=== PATIENT | male | born 1975 | race Caucasian/White ===

== ENCOUNTER 2020-07-03 06:41 | Day surgery (SDC) | payer BC ==
[~2020-07-03 06:41] MED LIST: LACTATED RINGERS 1,000 ML ONE
[2020-07-03] MEDS ORDERED: PROPOFOL 200 MG/20 ML VIAL IV ONE (07:00)
[2020-07-03] MEDS ORDERED: ceFAZolin SODIUM 1 GM VIAL ONE (07:00)
[2020-07-03] MEDS ORDERED: SODIUM CHLORIDE 0.9% 50 ML VIAL ONE (07:00)
[2020-07-03] MEDS ORDERED: MAGNESIUM SULFATE INJ 1 GM/2 ML VIAL ONE (07:00)
[2020-07-03] MEDS ORDERED: KETOROLAC TROMETHAMINE INJ 30 MG/ML VIAL ONE (07:00)
[2020-07-03] MEDS ORDERED: LIDOCAINE 1% 10 ML VIAL INJ ONE (07:00)
[2020-07-03] MEDS ORDERED: DEXAMETHASONE INJ 10 MG/ML VIAL ONE (07:00)
[2020-07-03] MEDS ORDERED: BUPIVACAINE 0.5% 30 ML VIAL INJ ONE ×2 (09:14→10:53)
[2020-07-03] MEDS ORDERED: BUPIVACAINE LIPOSOME 13.3 MG/ML VIAL INJ ONE ×2 (09:15→10:53)
[2020-07-03] MEDS ORDERED: KETAMINE HCL 100 MG/ML VIAL ONE (10:24)
[2020-07-03] MEDS ORDERED: MIDAZOLAM INJ 2 MG/2 ML VIAL ONE (10:25)
[2020-07-03] MEDS ORDERED: fentaNYL CITRATE INJ 50 MCG/ML AMP ONE (10:25)
[2020-07-03] MEDS ORDERED: FAMOTIDINE 10 MG/ML ML IV ONE (11:18)
[2020-07-03] MEDS ORDERED: SODIUM CHLORIDE 0.9% (FLUSH) 10 ML SYG ONE (12:14)
[2020-07-03] MEDS ORDERED: HYDROmorphone HCL INJ 2 MG/ML VIAL ONE (12:14)
[2020-07-03] MEDS ORDERED: HYDROcodone 5MG/APAP 325MG 1 EA TAB ONE (12:56)
[2020-07-03] MEDS ORDERED: HYDROcodone 5MG/APAP 325MG 1 EA TAB PO ONE (13:05)
--- NOTE | 2020-07-03 13:23 | OP ---
DATE OF PROCEDURE: 07/03/20 PREOPERATIVE DIAGNOSIS: 1. Right inguinal hernia. POSTOPERATIVE DIAGNOSIS: 1. Right inguinal hernia. PROCEDURE: 1. Repair of right inguinal hernia with mesh. 2. Ilioinguinal nerve block for postoperative pain control. SURGEON: Senthil Hill MD. ANESTHESIA: General and local. FINDINGS: He had a moderate sized indirect hernia. The nerve was identified and spared. COMPLICATIONS: None. ESTIMATED BLOOD LOSS: None. MESH: Large PHS. PLAN: Discharge. INDICATION: As stated. PROCEDURE: General anesthesia was induced. He was prepped and draped in sterile fashion. 0.5% Marcaine with Exparel was used based on anatomic landmarks identifying the ASIS and injecting in a fan pattern around it to do an ilioinguinal nerve block. Incision was made. Subcutaneous tissues were taken down. The subcutaneous vessel was cauterized and divided. The external oblique aponeurosis was identified. A jalyn was made. It was opened along its fibers. The nerve was dissected out and spared superiorly. We then dissected out the cord and took off a small cord lipoma as well as identifying the sac, which was moderate in size. It was dissected out to its base. We then got into the preperitoneal plane and using moist Ray-Tecs s and finger sweep, we dissected out the preperitoneal plane. The large PHS mesh was then used. It was trimmed inferiorly and placed, lying flat in the preperitoneal plane. A cut was made, wrapped around the cord, non-stricturing and secured to the shelving edge and then secured at the tubercle. More local anesthesia was placed. Once the mesh was in place, the external oblique was then closed with a running 2-0 Vicryl with care not to bother the nerve, which was now underneath the mesh. More local was placed. The wound was closed with interrupted Vicryl sutures and then the skin zipper device was used on the skin as the patient had a history of problems with absorbable skin suture in the past. Lap and instrument was correct. A little more local was placed. The patient was awakened and taken to Recovery to be discharged. #[id number] cc: Arnulfo Betancur MD [facility]
[2020-07-03 15:02] VITALS: BP 103/62; TEMP 97; O2SAT 97
== END 2020-07-03 15:00 | disposition home or self-care (01) ==
LOC: AMB 06:41
PROVIDERS: ATTEND Surgery
DX: K40.90 Unilateral inguinal hernia, without obstruction or gangrene, not specified as recurrent (principal); D17.6 Benign lipomatous neoplasm of spermatic cord; E11.9 Type 2 diabetes mellitus without complications; I10 Essential (primary) hypertension; Z88.0 Allergy status to penicillin; Z91.018 Allergy to other foods; Z79.899 Other long term (current) drug therapy; Z87.891 Personal history of nicotine dependence
CPT/HCPCS: 00840; 36415; 49505; 80048; 85025; A4216; J0690; J1100; J1170; J1885; J2250; J3010; J3475; J3490; J7120